=== PATIENT | female | born 1970 ===

== ENCOUNTER 2018-08-08 20:09 | Emergency (ER) | payer OTHER ==
[2018-08-08 20:09] VITALS: BMI 32.8
[2018-08-08 20:19] VITALS: O2SAT 100
--- NOTE | 2018-08-08 21:43 | C.PDOC ---
History Of Present Illness 47 y/o female presents to the ED complaining of a frontal headache since this morning. No significant history of headaches in the past. States she felt near syncopal during work today. Tried taking 2 tablets of Tylenol sinus over the counter around 6pm. Patient also complaining of shooting pains in her left calf , which are severe but last a few seconds at a time. Denies any leg edema, SOB, or chest pain. Denies sedentary lifestyle. Patient has history of DVT at age 19 related to control use. PMHx also significant for paroxysmal A Fib, takes atenolol daily with good compliance. Time Seen by Provider: 08/08/18 21:24 Chief Complaint (Nursing): Headache History Per: Patient History/Exam Limitations: None Onset/Duration Of Symptoms: Hrs Current Symptoms Are (Timing): Still Present Symptoms Have Been: Continuous Past Medical History Reviewed: Historical Data, Nursing Documentation, Vital Signs Vital Signs: Last Vital Signs Temp 98.3 F 08/08/18 21:49 Pulse 68 08/08/18 21:49 Resp 17 08/08/18 21:49 BP 110/73 08/08/18 21:49 Pulse Ox 100 08/08/18 22:17 - Medical History PMH: Atrial Fibrillation (paroxysmal), Pneumonia (2 years ago) Denies: Chronic Kidney Disease Surgical History: Cholecystectomy (2007) - [facility] OTH LAPAROSCOP LOCAL EXCIS/DESTRUCT OVARY (12/14/14) Family History: States: No Known Family Hx - Social History Hx Tobacco Use: No Hx Alcohol Use: Yes Hx Substance Use: No - Immunization History Hx Tetanus Toxoid Vaccination: No Hx Influenza Vaccination: No Hx Pneumococcal Vaccination: No Review Of Systems Except As Marked, All Systems Reviewed And Found Negative. Constitutional: Negative for: Fever, Chills Eyes: Negative for: Vision Change Cardiovascular: Negative for: Chest Pain, Palpitations, Light Headedness Respiratory: Negative for: Shortness of Breath Gastrointestinal: Negative for: Nausea, Vomiting Musculoskeletal: Positive for: Leg Pain (left calf pain). Negative for: Other ( leg swelling) Neurological: Positive for: Headache. Negative for: Weakness, Numbness, Incoordination Physical Exam - Physical Exam Appears: Non-toxic, No Acute Distress Skin: Normal Color, Warm, Dry Head: Atraumatic, Normacephalic Eye(s): bilateral: Normal Inspection, PERRL, EOMI Ear(s): Bilateral: Normal Nose: Discharge (Increased congestion, left > right) Oral Mucosa: Moist Throat: Normal, No Erythema, No Exudate Neck: Normal ROM, Supple Chest: Symmetrical Cardiovascular: Murmur (+ holosystolic murmur) Respiratory: Normal Breath Sounds, No Rales, No Rhonchi, No Wheezing Gastrointestinal/Abdominal: Soft, No Tenderness, No Distention, Other (Obese abdomen) Extremity: Normal ROM (to lower extremities), No Tenderness, Capillary Refill ( less than 2 sec), Other (No cyanosis, edema, or clubbing) Neurological/Psych: Oriented x3, Normal Speech ED Course And Treatment O2 Sat by Pulse Oximetry: 100 (RA) Pulse Ox Interpretation: Normal Medical Decision Making Medical Decision Making: Impression: frontal DONIS, probably due to sinus congestion noted on exam LOW susp of PE/DVT as legs normal h/o DVT @ age 19 related to OCP, never smoked, no leg edema now. Plan: Initially offered EKG and nsaids for headache, and patient agreed to treatment plan. 9:44pm Patient now stating that she would like to instead take her medication at home and defer work-up. Offered more extensive work-up, patient declines. Disposition Doctor Will See Patient In The: Office Counseled Patient/Family Regarding: Studies Performed, Diagnosis, Need For Followup - Disposition Referrals: Skip Apple MD [Medical Doctor] - Disposition: HOME/ ROUTINE Disposition Time: 21:43 Condition: GOOD Additional Instructions: continue NSAIDS like Motrin/Advil for sinus headache: Motrin/Advil 400-600 mg every 6 hours as needed Flonase 1 spray to bilateral nostrils every 12 hours as needed Avoid "sinus" cold preparation meds which may contain pseudafed-like ingredients (stimulant nasal decongestants) which may accelerate your heart rate and provoke your paroxysmal Atrial fibrillation follow-up with your PMD as needed. Instructions: Sinus Headache (DC) Forms: [facility] (Urdu) - POA Present On Arrival: None - Clinical Impression Clinical Impression: Frontal headache - Scribe Statement The provider has reviewed the documentation as recorded by the Scribe (Jocelin Teixeira) Provider Attestation: All medical record entries made by the Scribe were at my direction and personally dictated by me. I have reviewed the chart and agree that the record accurately reflects my personal performance of the history, physical exam, medical decision making, and the department course for this patient. I have also personally directed, reviewed, and agree with the discharge instructions and disposition.
[2018-08-08 21:52] VITALS: BP 110/73; PULSE 68; RESP 17; TEMP 98.3
== END 2018-08-08 21:50 | disposition home or self-care (01) ==
LOC: C.ER 20:09
DX: R51 Headache (principal); I48.0 Paroxysmal atrial fibrillation